=== PATIENT | male | born 1975 | race Caucasian/White ===

== ENCOUNTER 2021-12-11 14:44 | Outpatient (CLI) | payer MEDICAID, SELFPAY ==
[~2021-12-11] VITALS: Ht 170.2 cm; Wt 59.0 kg
== END 2021-12-11 17:00 | disposition home or self-care (01) ==
LOC: SLB 14:44 → EDSTATUS 12-15 08:30
PROVIDERS: ATTEND Internal Medicine Gastroenterology
DX: Z01.812 Encounter for preprocedural laboratory examination (principal); Z20.822 Contact with and (suspected) exposure to COVID-19; K25.9 Gastric ulcer, unspecified as acute or chronic, without hemorrhage or perforation
CPT/HCPCS: C9803; U0003